=== PATIENT | female | born 1975 | race Hispanic/Latino ===

== ENCOUNTER 2019-06-25 02:53 | Emergency (ER) | payer BC, OTHER ==
[2019-06-25] MEDS ORDERED: ZOFRAN IM ONE (03:32)
[2019-06-25] MEDS ORDERED: MORPHINE IM ONE (03:32)
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
[2019-06-25 06:00] VITALS: BP 120/74
== END 2019-06-25 05:56 | disposition home or self-care (01) ==
LOC: ED 02:53
DX: S16.1XXA Strain of muscle, fascia and tendon at neck level, initial encounter (principal); S09.90XA Unspecified injury of head, initial encounter; M54.5 Low back pain; F41.9 Anxiety disorder, unspecified; Z79.899 Other long term (current) drug therapy; V49.49XA Driver injured in collision with other motor vehicles in traffic accident, initial encounter; Y93.89 Activity, other specified; Y92.488 Other paved roadways as the place of occurrence of the external cause; Y99.8 Other external cause status
CPT/HCPCS: 36415; 70450; 72125; 72131; 84702; 96372; 99284; J2270; J2405

== ENCOUNTER 2019-09-12 23:09 | Emergency (ER) | payer BC ==
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
[2019-09-13 01:40] VITALS: BP 145/86
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
[2019-09-13] MEDS ORDERED: HYDROcodone/ACETAMINOPHEN 5-325 MG TAB PO ONE (02:03)
[2019-09-13] MEDS ORDERED: IBUPROFEN 800 MG TAB PO ONE (02:03)
== END 2019-09-13 02:31 | disposition home or self-care (01) ==
LOC: ED 23:09
DX: S50.12XA Contusion of left forearm, initial encounter (principal); S09.90XA Unspecified injury of head, initial encounter; Y08.89XA Assault by other specified means, initial encounter; Y93.89 Activity, other specified; Y92.89 Other specified places as the place of occurrence of the external cause; Y99.8 Other external cause status
CPT/HCPCS: 70450; 72125

== ENCOUNTER 2020-02-21 20:31 | Emergency (ER) | payer BC ==
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
[2020-02-21 23:31] VITALS: BP 138/87
== END 2020-02-21 22:55 | disposition home or self-care (01) ==
LOC: ED 20:31
DX: M54.5 Low back pain (principal); M25.562 Pain in left knee; F41.9 Anxiety disorder, unspecified; Z79.899 Other long term (current) drug therapy; Z91.013 Allergy to seafood
CPT/HCPCS: 72100

== ENCOUNTER 2021-08-04 12:44 | Emergency (ER) | payer OTHER, BC ==
[2021-08-04 12:53] VITALS: BP 146/97
[2021-08-04] MEDS ORDERED: IBUPROFEN 800 MG TAB PO ONE (13:08)
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
== END 2021-08-04 14:55 | disposition home or self-care (01) ==
LOC: ED 12:44
DX: S39.012A Strain of muscle, fascia and tendon of lower back, initial encounter (principal); S66.911A Strain of unspecified muscle, fascia and tendon at wrist and hand level, right hand, initial encounter; F41.9 Anxiety disorder, unspecified; Z72.89 Other problems related to lifestyle; Z91.013 Allergy to seafood; Z79.899 Other long term (current) drug therapy; V89.2XXA Person injured in unspecified motor-vehicle accident, traffic, initial encounter; Y93.89 Activity, other specified; Y92.488 Other paved roadways as the place of occurrence of the external cause; Y99.8 Other external cause status
CPT/HCPCS: 72070; 72100; 99283

== ENCOUNTER 2021-10-12 12:29 | Emergency (ER) | payer BC, OTHER ==
[2021-10-12] MEDS ORDERED: IPRATROPIUM/ALBUTEROL SULFATE 3 ML AMPUL.NEB IH ONE (15:50)
[2021-10-12] MEDS ORDERED: SODIUM CHLORIDE 0.9% 1000 ML 1,000 ML IV ONE (15:50)
[2021-10-12] MEDS ORDERED: methylPREDNISolone Sod Succinate 125 MG/2 ML INJ IV ONE (15:50)
--- NOTE | 2021-10-12 15:53 | Event Note ---
ED Screening Note Date of service: 10/12/21 Time: 15:51 ED Screening Note: 46-year-old female with a past medical history of asthma and a heart murmur presents to the ER today with complaints of cough, wheezing, shortness of breath, sinus pressure, nasal congestion and hoarse voice secondary to cough for the past week. She states that she did have a fever of 101 last night for which she took Tylenol. She states that she ran out of her albuterol MDI 1 week ago. She states that she has not had a Covid test nor has she had a Covid vaccine. She denies tobacco use. She states that she never been admitted for her asthma in the past. This initial assessment/diagnostic orders/clinical plan/treatment(s) is/are subject to change based on patients health status, clinical progression and re- assessment by fellow clinical providers in the ED. Further treatment and workup at subsequent clinical providers discretion. Patient/guardian urged not to elope from the ED as their condition may be serious if not clinically assessed and managed. Initial orders include: Labs/fluids/neb tx/cxr
--- NOTE | 2021-10-12 16:21 | XRay Report ---
CHEST 2 VIEWS INDICATION / CLINICAL INFORMATION: Cough.wheezing. COMPARISON: None available. FINDINGS: SUPPORT DEVICES: None. HEART / MEDIASTINUM: No significant abnormality. LUNGS / PLEURA: Mild increased interstitial prominence in the left lower lung. No pneumothorax. Signer Name: Alex Ellison MD Signed: 10/12/2021 4:17 PM Workstation Name: [id number]
[2021-10-12 17:19] LABS: Basophils % (Auto) 0.6 % (0.0-1.8); Eosinophils % (Auto) 0.6 % (0.0-4.3); Hematocrit 38.8 % (30.3-42.9); Hemoglobin 12.9 gm/dl (10.1-14.3); Lymphocytes # (Auto) 0.5 K/mm3 (1.2-5.4); Lymphocytes % (Auto) 8.7 % (13.4-35.0); Mean Corpuscular HGB Conc 33 % (30-34); Mean Corpuscular Volume 92 fl (79-97); Monocytes # (Auto) 0.9 K/mm3 (0.0-0.8); Monocytes % (Auto) 14.7 % (0.0-7.3); Platelet Count 265 K/mm3 (140-440); Red Blood Count 4.23 M/mm3 (3.65-5.03); Red Cell Distribution Width 12.7 % (13.2-15.2)
[2021-10-12 17:41] LABS: Alanine Aminotransferase 12 units/L (7-56); BUN/Creatinine Ratio 15; Blood Urea Nitrogen 12 mg/dL (7-17); Calcium 8.4 mg/dL (8.4-10.2); Hemolysis Index 2
--- NOTE | 2021-10-12 18:18 | Emergency Department Report ---
ED General Adult HPI - General Chief complaint: Upper Respiratory Infection Stated complaint: cough Time Seen by Provider: 10/12/21 15:49 Source: EMS Mode of arrival: Ambulatory Limitations: No Limitations - History of Present Illness Initial comments: SOB and xavi , for few days fever for a day , o2 sat fine no covid vacination -: days(s) Severity scale (0 -10): 3 Worsens with: none - Related Data Home Medications Medication Instructions Recorded Confirmed Last Taken ALPRAZolam [Xanax TAB] 1 mg PO DAILY PRN 01/08/15 01/08/15 Unknown Previous Rx's Medication Instructions Recorded Last Taken Type HYDROcodone/APAP 5-325 [[place] 1 each PO Q6HR PRN #20 tablet 01/08/15 Unknown Rx 5/325] HYDROcodone/APAP 5-325 [[place] 1 each PO Q6HR PRN #12 tablet 06/25/19 Unknown Rx 5/325] HYDROcodone/APAP 5-325 [[place] 1 each PO Q6HR PRN #10 tablet 09/13/19 Unknown Rx 5/325] Ibuprofen [Motrin 400 MG tab] 400 mg PO TID 5 Days #15 tablet 09/13/19 Unknown Rx Ibuprofen [Motrin 600 MG tab] 600 mg PO Q8H PRN #20 tablet 02/21/20 Unknown Rx Cyclobenzaprine [Flexeril] 10 mg PO QHS PRN #10 tablet 08/04/21 Unknown Rx Naproxen 500 mg PO Q12H PRN #12 tablet 08/04/21 Unknown Rx Albuterol Mdi (or & Nicu Only) 2 puff IH QID PRN #8.5 gram 10/12/21 Unknown Rx [ProAir HFA Inhaler] levoFLOXacin [Levaquin TAB] 500 mg PO QDAY #7 tablet 10/12/21 Unknown Rx methylPREDNISolone [Medrol 4MG 4 mg PO UNK #1 tab.ds.pk 10/12/21 Unknown Rx DOSEPAK (21 tabs)] Allergies Allergy/AdvReac Type Severity Reaction Status Date / Time Fish Containing Products Allergy Swelling Verified 09/13/19 00:03 seafood Allergy Swelling Uncoded 09/13/19 00:06 ED Review of Systems ROS: Stated complaint: cough Other details as noted in HPI Constitutional: denies: chills, fever Eyes: denies: eye pain, eye discharge, vision change ENT: denies: ear pain, throat pain Respiratory: denies: cough, shortness of breath, wheezing Cardiovascular: denies: chest pain, palpitations Endocrine: no symptoms reported Gastrointestinal: denies: abdominal pain, nausea, diarrhea Genitourinary: denies: urgency, dysuria, discharge Musculoskeletal: denies: back pain, joint swelling, arthralgia Skin: denies: rash, lesions Neurological: denies: headache, weakness, paresthesias Psychiatric: denies: anxiety, depression Hematological/Lymphatic: denies: easy bleeding, easy bruising ED Past Medical Hx - Past Medical History Hx Psychiatric Treatment: Yes (ANXIETY) Additional medical history: back pain - Social History Smoking Status: Never Smoker Substance Use Type: Alcohol - Medications Home Medications: Home Medications Medication Instructions Recorded Confirmed Last Taken Type ALPRAZolam [Xanax TAB] 1 mg PO DAILY PRN 01/08/15 01/08/15 Unknown History HYDROcodone/APAP 5-325 [[place] 1 each PO Q6HR PRN #20 tablet 01/08/15 Unknown Rx 5/325] HYDROcodone/APAP 5-325 [[place] 1 each PO Q6HR PRN #12 tablet 06/25/19 Unknown Rx 5/325] HYDROcodone/APAP 5-325 [[place] 1 each PO Q6HR PRN #10 tablet 09/13/19 Unknown Rx 5/325] Ibuprofen [Motrin 400 MG tab] 400 mg PO TID 5 Days #15 tablet 09/13/19 Unknown Rx Ibuprofen [Motrin 600 MG tab] 600 mg PO Q8H PRN #20 tablet 02/21/20 Unknown Rx Cyclobenzaprine [Flexeril] 10 mg PO QHS PRN #10 tablet 08/04/21 Unknown Rx Naproxen 500 mg PO Q12H PRN #12 tablet 08/04/21 Unknown Rx Albuterol Mdi (or & Nicu Only) 2 puff IH QID PRN #8.5 gram 10/12/21 Unknown Rx [ProAir HFA Inhaler] levoFLOXacin [Levaquin TAB] 500 mg PO QDAY #7 tablet 10/12/21 Unknown Rx methylPREDNISolone [Medrol 4MG 4 mg PO UNK #1 tab.ds.pk 10/12/21 Unknown Rx DOSEPAK (21 tabs)] ED Physical Exam - General Limitations: No Limitations General appearance: alert, in no apparent distress - Head Head exam: Present: atraumatic, normocephalic - Eye Eye exam: Present: normal appearance - ENT ENT exam: Present: mucous membranes moist - Neck Neck exam: Present: normal inspection - Respiratory Respiratory exam: Present: normal lung sounds bilaterally, wheezes. Absent: respiratory distress - Cardiovascular Cardiovascular Exam: Present: regular rate, normal rhythm. Absent: systolic murmur, diastolic murmur, rubs, gallop - GI/Abdominal GI/Abdominal exam: Present: soft, normal bowel sounds - Extremities Exam Extremities exam: Present: normal inspection - Back Exam Back exam: Present: normal inspection - Neurological Exam Neurological exam: Present: alert, oriented X3 - Psychiatric Psychiatric exam: Present: normal affect, normal mood - Skin Skin exam: Present: warm, dry, intact, normal color. Absent: rash ED Course Vital Signs 10/12/21 12:31 Temperature 98.6 F Pulse Rate 123 H Respiratory 16 Rate Blood Pressure 150/92 [Left] O2 Sat by Pulse 98 Oximetry - Reevaluation(s) Reevaluation #1: 10/12/21 18:14 o2 sat 98 on RA no distress ED Medical Decision Making - Lab Data Result diagrams: 10/12/21 17:07 10/12/21 17:07 Critical care attestation.: If time is entered above; I have spent that time in minutes in the direct care of this critically ill patient, excluding procedure time. ED Disposition Clinical Impression: Asthma exacerbation Disposition: HOME / SELF CARE / HOMELESS Is pt being admited?: No Does the pt Need Aspirin: No Condition: Stable Instructions: Asthma, Adult Referrals: PRIMARY CARE, [Primary Care Provider] - 3-5 Days
[2021-10-12 19:19] VITALS: BP 142/80
== END 2021-10-12 19:19 | disposition home or self-care (01) ==
LOC: ED 12:29
DX: J45.901 Unspecified asthma with (acute) exacerbation (principal); F41.9 Anxiety disorder, unspecified; Z91.013 Allergy to seafood; Z72.89 Other problems related to lifestyle; Z79.899 Other long term (current) drug therapy
CPT/HCPCS: 36415; 71046; 80053; 85025; 94640; 96361; 96374; 99284; J2930; J7030; Q0162